=== PATIENT | female | born 1975 | race American Indian/Alaskan Native ===

== ENCOUNTER 2018-02-06 12:05 | Emergency (ER) | payer OTHER ==
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
[2018-02-06] MEDS ORDERED: ROCEPHIN IM ONE (14:54)
[2018-02-06] MEDS ORDERED: XYLOCAINE 1% MPF 5 mL INFILTRATI ONE (14:54)
[2018-02-06] MEDS ORDERED: ZITHROMAX PO ONE (14:54)
[2018-02-06] MEDS ORDERED: ZITHROMAX ONE (15:12)
[2018-02-06 15:30] LABS: Bacteria,Urine 4+ /HPF (Negative); Bilirubin,Urine NEG (Negative); Blood,Urine SM (Negative); Color,Urine Yellow (Yellow); Hyaline Casts,Urine 1 /LPF; Mucus,Urine 3+ /HPF; Protein,Urine <15 mg/dL mg/dL (Negative); Urobilinogen,Urine < 2.0 mg/dL (<2.0)
[2018-02-06 15:39] VITALS: BP 127/80
[2018-02-08 21:40] LABS: HIV-1 RNA QN PCR <1.30 Log cps/mL; HIV-1 RNA QN PCR <20 Copies/mL
== END 2018-02-06 15:54 | disposition home or self-care (01) ==
LOC: ED 12:05
DX: T74.21XA Adult sexual abuse, confirmed, initial encounter (principal); Y04.2XXA Assault by strike against or bumped into by another person, initial encounter; Y93.89 Activity, other specified; Y92.89 Other specified places as the place of occurrence of the external cause; Y99.8 Other external cause status
CPT/HCPCS: 36415; 81001; 87210; 87536; 87591; 96372; 99283; J0696